=== PATIENT | male | born 1945 | race Caucasian/White ===

== ENCOUNTER 2019-08-10 12:15 | Inpatient (IN) ==
[2019-08-10 14:27] LABS: Basophils % 0.2 % (0.0-0.8); Eosinophils % 0.1 % (0.00-10.9); Hematocrit 37.1 VOL% (42.0-52.0); Hemoglobin 11.7 GM/DL (14.0-18.0); Immature Granulocytes % 0.7 %; Lymphocytes # 0.7 10*3/uL (1.4-4.0); Lymphocytes % 5.2 % (21.2-54.2); Mean Corpuscular HGB Conc 31.5 GM/DL (32-36); Mean Corpuscular Volume 101.4 FL (87-102); Mean Platelet Volume 9.3 FL (9.6-12.0); Monocytes % 9.3 % (1.7-12.7); Neutrophils % 84.5 % (38.7-73.9); Platelet Count 259 T/CUMM (130-400); Red Blood Count 3.66 MC/CUMM (3.8-5.5); Red Cell Distribution Width 13.2 % (9.3-17.3); White Blood Count 13.8 T/CUMM (4-12)
[2019-08-10 14:46] LABS: Albumin 2.2 G/DL (3.4-5.0); Bilirubin,Total 0.8 MG/DL (0.2-1.0); Calcium 8.2 MG/DL (8.5-10.1); Total Protein 6.2 G/DL (6.4-8.3)
[2019-08-10] MEDS ORDERED: PIPERACILLIN/TAZOBACTAM 3,375 MG in SODIUM CHLORIDE 0.9% 100 ML IV STA ×2 (15:12→15:24)
[2019-08-10 15:17] LABS: Apearance,Urine CLEAR (Clear); Bilirubin,Urine Negative (Negative); Blood, Urine Negative (Negative); Glucose,Urine (UA) Negative (Negative); Hyaline Casts,Urine 6 /LPF (0-3); Ketones,Urine Negative (Negative); Mucus,Urine Many /LPF (Occasional); Nitrite,Urine Negative (Negative); Protein,Urine Negative; RBC,Urine 3 /HPF (0-4); Urine Specific Gravity 1.058 (1.001-1.035); Urine Urobilinogen < 2.0 EU/DL (0.2-1.0); WBC,Urine 3 /HPF (0-6)
[2019-08-10 15:18] LABS: Urine Color Yellow (Yellow)
[2019-08-10 16:00] LABS: INR 1.1; PT Patient Result 11.9 SECS (9.8-11.9)
[2019-08-10] MEDS ORDERED: ACETAMINOPHEN 325 MG TABLET PO PRN (16:27)
[2019-08-10] MEDS ORDERED: ZALEPLON 5 MG CAPSULE PO PRN (16:27)
[2019-08-10] MEDS ORDERED: ONDANSETRON 4 MG/2 ML VIAL IV PRN (16:27)
[2019-08-10] MEDS: SODIUM CHLORIDE 0.9% 1,000 ML IV SCH (17:35)
[2019-08-10] MEDS ORDERED: DIPHENOXYLATE/ATROPINE 2.5-0.025 MG TABLET PO PRN (17:43)
[2019-08-10] MEDS: LIPASE PROTEASE AMYLASE PO SCH (18:43)
[2019-08-10] MEDS ORDERED: ALUMINUM/MAGNES/SIMETH MAX STR 30 ML UDCUP PO PRN (20:13)
[2019-08-10] MEDS: TAMSULOSIN 0.4 MG CAPSULE PO SCH (20:23)
[2019-08-10] MEDS: PIPERACILLIN/TAZOBACTAM 3,375 MG in SODIUM CHLORIDE 0.9% 100 ML IV SCH (23:46)
[2019-08-11 06:11] LABS: Basophils % 0.3 % (0.0-0.8); Hematocrit 33.4 VOL% (42.0-52.0); Hemoglobin 10.9 GM/DL (14.0-18.0); Immature Granulocytes % 0.6 %; Immature Granulocytes Absolute 0.08 #; Lymphocytes # 0.5 10*3/uL (1.4-4.0); Lymphocytes % 3.6 % (21.2-54.2); Mean Corpuscular HGB Conc 32.6 GM/DL (32-36); Mean Corpuscular Volume 97.1 FL (87-102); Mean Platelet Volume 9.1 FL (9.6-12.0); Monocytes % 10.3 % (1.7-12.7); Neutrophils % 85.2 % (38.7-73.9); Platelet Count 225 T/CUMM (130-400); Red Blood Count 3.44 MC/CUMM (3.8-5.5); Red Cell Distribution Width 13.4 % (9.3-17.3); White Blood Count 13.2 T/CUMM (4-12)
[2019-08-11 06:16] LABS: INR 1.2; PT Patient Result 12.4 SECS (9.8-11.9); Partial Thromboplastin Time 34.9 SECS (23.9-33.8)
[2019-08-11 06:36] LABS: Lymphocytes 5 % (20-55); Segmented Neutrophils 87 % (50-85); Total Cells Counted 100
[2019-08-11 06:37] LABS: Hypochromasia 1+; Macrocytosis Slight; Platelet Estimate Normal
[2019-08-11] MEDS: LIPASE PROTEASE AMYLASE PO SCH ×3 (09:46→17:03)
[2019-08-11] MEDS: PIPERACILLIN/TAZOBACTAM 3,375 MG in SODIUM CHLORIDE 0.9% 100 ML IV SCH ×3 (09:50→23:56)
[2019-08-11 09:55] LABS: Neutrophils,Peritoneal Fluid 76 %
[2019-08-11 09:56] LABS: RBC,Peritoneal Fluid 6825 T/CUMM
[2019-08-11] MEDS: SODIUM CHLORIDE 0.9% 1,000 ML IV SCH (10:25)
[2019-08-11] MEDS: TAMSULOSIN 0.4 MG CAPSULE PO SCH (20:35)
[2019-08-12] MEDS: SODIUM CHLORIDE 0.9% 1,000 ML IV SCH (06:05)
[2019-08-12 08:23] VITALS: BP 97/55
[2019-08-12 08:39] LABS: Basophils # 0.1 10*3/uL (0.0-0.2); Basophils % 0.4 % (0.0-0.8); Eosinophils % 0.1 % (0.00-10.9); Hematocrit 37.1 VOL% (42.0-52.0); Hemoglobin 11.8 GM/DL (14.0-18.0); Immature Granulocytes % 0.5 %; Immature Granulocytes Absolute 0.07 #; Lymphocytes # 0.8 10*3/uL (1.4-4.0); Lymphocytes % 6.1 % (21.2-54.2); Mean Corpuscular HGB Conc 31.8 GM/DL (32-36); Mean Corpuscular Volume 101.1 FL (87-102); Mean Platelet Volume 9.2 FL (9.6-12.0); Monocytes % 9.2 % (1.7-12.7); Neutrophils % 83.7 % (38.7-73.9); Platelet Count 249 T/CUMM (130-400); Red Blood Count 3.67 MC/CUMM (3.8-5.5); Red Cell Distribution Width 13.2 % (9.3-17.3); White Blood Count 13.5 T/CUMM (4-12)
[2019-08-12 09:04] LABS: Calcium 8.2 MG/DL (8.5-10.1); Osmolality,Calculated 271.8 MOS/KG (273-304)
[2019-08-12] MEDS: PIPERACILLIN/TAZOBACTAM 3,375 MG in SODIUM CHLORIDE 0.9% 100 ML IV SCH (09:20)
[2019-08-12] MEDS: LIPASE PROTEASE AMYLASE PO SCH (09:21)
== END 2019-08-12 11:48 | disposition home or self-care (01) | DRG 436 ==
LOC: N.ED 12:15 → N.EDINP 16:27 → N.TELES 17:44
PROVIDERS: ADMIT Internal Medicine Geriatric Medicine; ATTEND Internal Medicine Geriatric Medicine

== ENCOUNTER 2019-08-20 12:18 | Inpatient (IN) ==
[2019-08-20 13:52] LABS: Hematocrit 36.3 VOL% (42.0-52.0); Hemoglobin 11.5 GM/DL (14.0-18.0); Immature Granulocytes % 0.5 %; Immature Granulocytes Absolute 0.08 #; Lymphocytes # 0.3 10*3/uL (1.4-4.0); Lymphocytes % 1.6 % (21.2-54.2); Mean Corpuscular HGB Conc 31.7 GM/DL (32-36); Mean Corpuscular Volume 98.9 FL (87-102); Mean Platelet Volume 9.7 FL (9.6-12.0); Monocytes % 4.4 % (1.7-12.7); Neutrophils % 93.5 % (38.7-73.9); Platelet Count 144 T/CUMM (130-400); Red Blood Count 3.67 MC/CUMM (3.8-5.5); Red Cell Distribution Width 13.7 % (9.3-17.3); White Blood Count 15.9 T/CUMM (4-12)
[2019-08-20 14:14] LABS: Alanine Aminotransferase 18 U/L (16-61); Albumin 1.8 G/DL (3.4-5.0); Alkaline Phosphatase 187 U/L (45-117); Amylase 34 U/L (25-115); Aspartate Amino Transferase 38 U/L (0-37); Bilirubin,Total < 0.39 MG/DL (0.2-1.0); Blood Urea Nitrogen 75 MG/DL (7-18); Calcium 7.9 MG/DL (8.5-10.1); Estimated Glom Filtration Rate 17 ML/MIN; Ferritin 953.9 ng/ml (26-388); Glucose 149 MG/DL (74-106); Osmolality,Calculated 303.4 MOS/KG (273-304)
[2019-08-20 14:16] LABS: Troponin I 0.082 NG/ML (0.00-0.045)
[2019-08-20 14:32] LABS: INR 1.1
[2019-08-20 15:14] LABS: Segmented Neutrophils 94 % (50-85); Total Cells Counted 100
[2019-08-20 15:15] LABS: Platelet Estimate Adequate
[2019-08-20] MEDS ORDERED: GLUCAGON 1 MG VIAL IM PRN (16:07)
[2019-08-20] MEDS ORDERED: DEXTROSE 10% 250 ML BAG IV PRN (16:07)
[2019-08-20 17:00] LABS: Apearance,Urine CLEAR (Clear); Bacteria,Urine Occasional /HPF (Few); Bilirubin,Urine Negative (Negative); Blood, Urine Negative (Negative); Glucose,Urine (UA) Negative (Negative); Hyaline Casts,Urine 1 /LPF (0-3); Ketones,Urine Negative (Negative); Mucus,Urine Occasional /LPF (Occasional); Nitrite,Urine Negative (Negative); Protein,Urine Negative; RBC,Urine <1 /HPF (0-4); Urine Color Yellow (Yellow); Urine Urobilinogen < 2.0 EU/DL (0.2-1.0); WBC,Urine <1 /HPF (0-6)
[2019-08-20] MEDS ORDERED: INDOMETHACIN 50 MG CAPSULE PO PRN (18:43)
[2019-08-20] MEDS ORDERED: allopurinoL 300 MG TABLET PO PRN (18:43)
[2019-08-20] MEDS ORDERED: DIPHENOXYLATE/ATROPINE 2.5-0.025 MG TABLET PO PRN (18:43)
[2019-08-20] MEDS: SODIUM BICARBONATE 650 MG TABLET PO SCH (21:17)
[2019-08-20] MEDS: CHOLECALCIFEROL 1,000 UNIT TABLET PO SCH (21:17)
[2019-08-20] MEDS: APIXABAN 5 MG TABLET PO SCH (21:18)
[2019-08-20] MEDS: TAMSULOSIN 0.4 MG CAPSULE PO SCH (21:18)
[2019-08-21 06:53] LABS: Basophils % 0.1 % (0.0-0.8); Hemoglobin 11.9 GM/DL (14.0-18.0); Immature Granulocytes % 0.7 %; Lymphocytes # 0.5 10*3/uL (1.4-4.0); Lymphocytes % 3.6 % (21.2-54.2); Mean Corpuscular HGB Conc 32.2 GM/DL (32-36); Mean Corpuscular Volume 97.6 FL (87-102); Mean Platelet Volume 9.7 FL (9.6-12.0); Neutrophils % 86.6 % (38.7-73.9); Platelet Count 121 T/CUMM (130-400); Red Blood Count 3.79 MC/CUMM (3.8-5.5); Red Cell Distribution Width 13.9 % (9.3-17.3); White Blood Count 14.5 T/CUMM (4-12)
[2019-08-21 07:16] LABS: Albumin 1.8 G/DL (3.4-5.0); Bilirubin,Total 0.5 MG/DL (0.2-1.0); Osmolality,Calculated 306.1 MOS/KG (273-304); Total Protein 6.1 G/DL (6.4-8.3)
[2019-08-21] MEDS ORDERED: LIPASE PROTEASE AMYLASE PO SCH (08:00)
[2019-08-21 08:13] LABS: Anisocytosis Slight; Band Neutrophils 2 % (0-10); Lymphocytes 2 % (20-55); Macrocytosis 1+; Platelet Estimate Adequate; Segmented Neutrophils 91 % (50-85); Total Cells Counted 100
[2019-08-21] MEDS: SODIUM BICARBONATE 650 MG TABLET PO SCH ×2 (09:25→21:32)
[2019-08-21] MEDS: amLODIPine 2.5 MG TABLET PO SCH (09:26)
[2019-08-21] MEDS: APIXABAN 5 MG TABLET PO SCH (14:15)
[2019-08-21] MEDS: SODIUM CHLOR 0.45% KCL 20 MEQ 20 MEQ/1,000 ML BAG IV SCH (17:18)
[2019-08-21] MEDS: CHOLECALCIFEROL 1,000 UNIT TABLET PO SCH (21:32)
[2019-08-21] MEDS: TAMSULOSIN 0.4 MG CAPSULE PO SCH (21:32)
[2019-08-22 06:05] LABS: Albumin 1.5 G/DL (3.4-5.0); Bilirubin,Total 0.9 MG/DL (0.2-1.0); Calcium 8.1 MG/DL (8.5-10.1); Osmolality,Calculated 303.5 MOS/KG (273-304); Total Protein 5.6 G/DL (6.4-8.3)
[2019-08-22 08:32] LABS: Basophils % 0.1 % (0.0-0.8); Eosinophils % 0.1 % (0.00-10.9); Hematocrit 40.8 VOL% (42.0-52.0); Hemoglobin 12.8 GM/DL (14.0-18.0); Immature Granulocytes % 0.7 %; Immature Granulocytes Absolute 0.12 #; Lymphocytes # 0.5 10*3/uL (1.4-4.0); Lymphocytes % 3.3 % (21.2-54.2); Mean Corpuscular HGB Conc 31.4 GM/DL (32-36); Mean Corpuscular Volume 99.3 FL (87-102); Mean Platelet Volume 10.3 FL (9.6-12.0); Monocytes % 7.7 % (1.7-12.7); Neutrophils % 88.1 % (38.7-73.9); Platelet Count 109 T/CUMM (130-400); Red Blood Count 4.11 MC/CUMM (3.8-5.5); Red Cell Distribution Width 14.1 % (9.3-17.3); White Blood Count 16.2 T/CUMM (4-12)
[2019-08-22] MEDS: amLODIPine 2.5 MG TABLET PO SCH (09:15)
[2019-08-22] MEDS: SODIUM BICARBONATE 650 MG TABLET PO SCH ×2 (09:15→20:43)
[2019-08-22 09:40] LABS: Band Neutrophils 2 % (0-10); Lymphocytes 1 % (20-55); Platelet Estimate Adequate; Segmented Neutrophils 89 % (50-85); Total Cells Counted 100
[2019-08-22 09:41] LABS: Macrocytosis 1+
[2019-08-22] MEDS: SODIUM CHLOR 0.45% KCL 20 MEQ 20 MEQ/1,000 ML BAG IV SCH (13:35)
[2019-08-22] MEDS: TAMSULOSIN 0.4 MG CAPSULE PO SCH (20:42)
[2019-08-22] MEDS: CHOLECALCIFEROL 1,000 UNIT TABLET PO SCH (20:42)
[2019-08-23] MEDS: amLODIPine 2.5 MG TABLET PO SCH (10:20)
[2019-08-23] MEDS: SODIUM BICARBONATE 650 MG TABLET PO SCH ×2 (10:20→20:10)
[2019-08-23 11:18] LABS: Eosinophils % 0.1 % (0.00-10.9); Hematocrit 39.8 VOL% (42.0-52.0); Hemoglobin 12.7 GM/DL (14.0-18.0); Immature Granulocytes % 0.9 %; Immature Granulocytes Absolute 0.13 #; Lymphocytes # 0.4 10*3/uL (1.4-4.0); Lymphocytes % 2.8 % (21.2-54.2); Mean Corpuscular HGB Conc 31.9 GM/DL (32-36); Mean Corpuscular Volume 98.8 FL (87-102); Mean Platelet Volume 10.4 FL (9.6-12.0); Monocytes % 6.4 % (1.7-12.7); Neutrophils % 89.8 % (38.7-73.9); Platelet Count 118 T/CUMM (130-400); Red Blood Count 4.03 MC/CUMM (3.8-5.5); White Blood Count 13.9 T/CUMM (4-12)
[2019-08-23 11:33] LABS: Calcium 8.1 MG/DL (8.5-10.1); Osmolality,Calculated 307.4 MOS/KG (273-304)
[2019-08-23 11:55] LABS: Band Neutrophils 1 % (0-10); Lymphocytes 5 % (20-55); Segmented Neutrophils 88 % (50-85); Total Cells Counted 100
[2019-08-23 11:56] LABS: Macrocytosis Slight; Platelet Estimate Adequate
[2019-08-23] MEDS ORDERED: ALBUMIN 25% 25 GM in PREMIX 1 EACH IV ONE (18:00)
[2019-08-23] MEDS: TAMSULOSIN 0.4 MG CAPSULE PO SCH (20:10)
[2019-08-23] MEDS: CHOLECALCIFEROL 1,000 UNIT TABLET PO SCH (20:10)
[2019-08-23] MEDS: SODIUM CHLOR 0.45% KCL 20 MEQ 20 MEQ/1,000 ML BAG IV SCH (20:13)
[2019-08-24 05:02] LABS: Basophils % 0.1 % (0.0-0.8); Eosinophils % 0.3 % (0.00-10.9); Hematocrit 38.2 VOL% (42.0-52.0); Hemoglobin 12.1 GM/DL (14.0-18.0); Immature Granulocytes % 0.8 %; Immature Granulocytes Absolute 0.12 #; Lymphocytes # 0.5 10*3/uL (1.4-4.0); Lymphocytes % 3.7 % (21.2-54.2); Mean Corpuscular HGB Conc 31.7 GM/DL (32-36); Mean Corpuscular Volume 98.2 FL (87-102); Mean Platelet Volume 10.2 FL (9.6-12.0); Monocytes % 7.9 % (1.7-12.7); Neutrophils % 87.2 % (38.7-73.9); Platelet Count 113 T/CUMM (130-400); Red Blood Count 3.89 MC/CUMM (3.8-5.5); Red Cell Distribution Width 14.2 % (9.3-17.3); White Blood Count 14.2 T/CUMM (4-12)
[2019-08-24 05:25] LABS: Hypochromasia 1+; Lymphocytes 8 % (20-55); Macrocytosis Slight; Ovalocytes Slight; Platelet Estimate Decreased; Segmented Neutrophils 84 % (50-85); Total Cells Counted 100
[2019-08-24 05:26] LABS: Calcium 8.1 MG/DL (8.5-10.1); Osmolality,Calculated 299.8 MOS/KG (273-304)
[2019-08-24] MEDS: SODIUM BICARBONATE 650 MG TABLET PO SCH ×2 (09:26→20:22)
[2019-08-24] MEDS: amLODIPine 2.5 MG TABLET PO SCH (09:26)
[2019-08-24] MEDS: SODIUM CHLOR 0.45% KCL 20 MEQ 20 MEQ/1,000 ML BAG IV SCH (15:22)
[2019-08-24] MEDS: CHOLECALCIFEROL 1,000 UNIT TABLET PO SCH (20:22)
[2019-08-24] MEDS: TAMSULOSIN 0.4 MG CAPSULE PO SCH (20:22)
[2019-08-24] MEDS: APIXABAN 5 MG TABLET PO SCH (20:23)
[2019-08-25] MEDS: SODIUM BICARBONATE 650 MG TABLET PO SCH ×2 (08:28→20:28)
[2019-08-25] MEDS: APIXABAN 5 MG TABLET PO SCH ×2 (08:29→20:28)
[2019-08-25 09:59] LABS: Basophils % 0.1 % (0.0-0.8); Eosinophils % 0.1 % (0.00-10.9); Hematocrit 36.9 VOL% (42.0-52.0); Hemoglobin 11.8 GM/DL (14.0-18.0); Immature Granulocytes % 1.1 %; Immature Granulocytes Absolute 0.16 #; Lymphocytes # 0.4 10*3/uL (1.4-4.0); Lymphocytes % 2.9 % (21.2-54.2); Mean Corpuscular Volume 95.8 FL (87-102); Mean Platelet Volume 9.7 FL (9.6-12.0); Monocytes % 7.4 % (1.7-12.7); Neutrophils % 88.4 % (38.7-73.9); Platelet Count 121 T/CUMM (130-400); Red Blood Count 3.85 MC/CUMM (3.8-5.5); Red Cell Distribution Width 14.4 % (9.3-17.3)
[2019-08-25 10:21] LABS: Hypochromasia 1+; Lymphocytes 4 % (20-55); Segmented Neutrophils 92 % (50-85); Total Cells Counted 100
[2019-08-25] MEDS: SODIUM CHLOR 0.45% KCL 20 MEQ 20 MEQ/1,000 ML BAG IV SCH (11:56)
[2019-08-25 16:00] LABS: Albumin 1.5 G/DL (3.4-5.0); Bilirubin,Total 0.8 MG/DL (0.2-1.0); Calcium 8.4 MG/DL (8.5-10.1); Osmolality,Calculated 302.8 MOS/KG (273-304); Total Protein 5.2 G/DL (6.4-8.3)
[2019-08-25] MEDS: MORPHINE 4 MG/1 ML VIAL IV PRN (18:08)
[2019-08-25] MEDS: CHOLECALCIFEROL 1,000 UNIT TABLET PO SCH (20:28)
[2019-08-25] MEDS: TAMSULOSIN 0.4 MG CAPSULE PO SCH (20:28)
[2019-08-26 05:01] LABS: Basophils % 0.1 % (0.0-0.8); Eosinophils % 0.2 % (0.00-10.9); Hemoglobin 11.7 GM/DL (14.0-18.0); Immature Granulocytes Absolute 0.12 #; Lymphocytes # 0.5 10*3/uL (1.4-4.0); Lymphocytes % 4.1 % (21.2-54.2); Mean Corpuscular HGB Conc 31.6 GM/DL (32-36); Mean Corpuscular Volume 97.1 FL (87-102); Mean Platelet Volume 10.2 FL (9.6-12.0); Monocytes % 9.2 % (1.7-12.7); Neutrophils % 85.4 % (38.7-73.9); Platelet Count 133 T/CUMM (130-400); Red Blood Count 3.81 MC/CUMM (3.8-5.5); Red Cell Distribution Width 14.5 % (9.3-17.3); White Blood Count 12.2 T/CUMM (4-12)
[2019-08-26 05:33] LABS: Albumin 1.5 G/DL (3.4-5.0); Bilirubin,Total 0.7 MG/DL (0.2-1.0); Calcium 7.8 MG/DL (8.5-10.1); Osmolality,Calculated 303.5 MOS/KG (273-304); Total Protein 5.5 G/DL (6.4-8.3)
[2019-08-26 05:36] LABS: Hypochromasia 1+; Lymphocytes 4 % (20-55); Segmented Neutrophils 86 % (50-85); Total Cells Counted 100
[2019-08-26 05:37] LABS: Macrocytosis Slight
[2019-08-26] MEDS ORDERED: SODIUM POLYSTYRENE SULFATE 15 GM/60 ML BOTTLE PO ONE (07:46)
[2019-08-26] MEDS: APIXABAN 5 MG TABLET PO SCH ×2 (09:31→20:52)
[2019-08-26] MEDS: SODIUM BICARBONATE 650 MG TABLET PO SCH ×2 (09:31→20:52)
[2019-08-26] MEDS: SODIUM CHLOR 0.45% KCL 20 MEQ 20 MEQ/1,000 ML BAG IV SCH (09:37)
[2019-08-26] MEDS: SODIUM CHLORIDE 0.45% 1,000 ML IV SCH (11:05)
[2019-08-26] MEDS: TAMSULOSIN 0.4 MG CAPSULE PO SCH (20:52)
[2019-08-26] MEDS: CHOLECALCIFEROL 1,000 UNIT TABLET PO SCH (20:52)
[2019-08-27] MEDS: SODIUM CHLORIDE 0.45% 1,000 ML IV SCH (05:47)
[2019-08-27 06:55] LABS: Albumin 1.4 G/DL (3.4-5.0); Calcium 7.5 MG/DL (8.5-10.1); Osmolality,Calculated 303.4 MOS/KG (273-304)
[2019-08-27] MEDS: APIXABAN 5 MG TABLET PO SCH (08:34)
[2019-08-27] MEDS: SODIUM BICARBONATE 650 MG TABLET PO SCH (08:34)
[2019-08-27] MEDS: MORPHINE 4 MG/1 ML VIAL IV PRN (08:41)
[2019-08-27] MEDS ORDERED: HEPARIN LOCK FLUSH 500 UNIT/5 ML SYRINGE IV ONE (12:38)
[2019-08-27 12:52] VITALS: BP 103/64
== END 2019-08-27 13:07 | disposition home or self-care (01) | DRG 683 ==
LOC: N.ED 12:18 → N.EDINP 16:07 → N.TELES 17:52
PROVIDERS: ADMIT Internal Medicine; ATTEND Internal Medicine